=== PATIENT | female | born 2000 ===

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

== ENCOUNTER 2022-01-18 16:24 | Emergency (ER) | payer OTHER, SELFPAY ==
[2022-01-18 17:53] VITALS: BP 109/56; PULSE 68; RESP 16; TEMP 36.7; O2SAT 99; BMI 17.5
--- NOTE | 2022-01-18 18:35 | ED_ITS ---
HPI - Skin/Abscess/Foreign Bdy General Chief complaint: Skin/Abscess/Foreign Body Stated complaint: insect bite Time Seen by Provider: 01/18/22 18:35 History of Present Illness HPI narrative: Patient complains of tender red area on the back of the left thigh, she thinks it might be an insect bite but does not recall any insect bite, she has no fever no chills no joint pains no other rash Related Data Previous Rx's Medication Instructions Recorded ibuprofen 600 mg tablet 600 mg PO Q6H PRN #20 tab 08/31/20 naproxen 500 mg tablet 500 mg PO BID PRN #20 tab 11/26/20 Allergies Allergy/AdvReac Type Severity Reaction Status Date / Time No Known Allergies Allergy Unverified 01/18/22 17:53 Review of Systems Review of Systems: Positive for left thigh area of redness and pain Negatives no fever no chills or dizziness weakness no fainting no feeling faint no neck pain no shortness of breath no nausea no vomiting no joint pains no other rash Yes all other systems are reviewed and are negative [facility] Past Medical History Source: nursing notes reviewed Medical History Anemia Social History Social History Alcohol intake: never Advance Directives: No Advance Directives Information Provided: No Physical Exam Vital Signs: Vital Signs: Last Vital Signs Temp 98.0 F 01/18/22 17:53 Pulse 68 01/18/22 17:53 Resp 16 01/18/22 17:53 BP 109/56 L 01/18/22 17:53 Pulse Ox 99 01/18/22 17:53 BMI result Body Mass Index 17.5 General appearance no acute distress The eyes no redness or discharge The sinuses not congested Neck is supple Respiratory no distress Extremities full range of motion x4 Skin exam of the back of the left thigh there is a 2 cm x 2 cm area of redness and tenderness which is mildly indurated at the center there is no fluctuance there is no discharge, no abscess now Course Course Course Narrative: Red indurated area on the back of the left thigh may be an early cellulitis, could be an early abscess that is not yet formed, could be simply a bug bite so it is treated with antibiotic as it is painful and red may be infected and patient will return if it gets more swollen or redness spreads Discharge Plan Discharge Clinical Impression: Cellulitis Patient Disposition: Home, Self-Care Additional Instructions: The painful red area on the back of the left leg could be simply an insect bite or it could be an infection We are treating for possible infection with doxycycline, you should take it with food as in some people it can make them nauseous on an empty stomach Follow with your doctor for wound check in 3 or 4 days if not better Return here any time for spreading redness, worse pain and swelling, red stripe going up the leg, discharge from wound, any sign of worsening infection any worse condition or any concerns Apply a warm cloth periodically as it may help any drainage Prescriptions: No Action ibuprofen 600 mg tablet 600 mg PO Q6H PRN (Reason: pain) Qty: 20 0RF naproxen 500 mg tablet 500 mg PO BID PRN (Reason: pain) Qty: 20 0RF
== END 2022-01-18 18:52 | disposition home or self-care (01) ==
PROVIDERS: Emergency Provider Internal Medicine
DX: L03.116 Cellulitis of left lower limb (principal); M79.652 Pain in left thigh
CPT/HCPCS: 99283

== ENCOUNTER 2022-04-27 13:09 | Outpatient (REF) | payer OTHER, SELFPAY ==
[2022-04-27 13:49] LABS: COVID-19 Test Negative (Negative); IDNOW Serial# 08D9AD1C
== END 2022-04-27 13:10 | disposition home or self-care (01) ==
LOC: HO.LAB 13:09
PROVIDERS: Visit Provider Internal Medicine
DX: Z20.822 Contact with and (suspected) exposure to COVID-19 (principal)
CPT/HCPCS: 87635; C9803

== ENCOUNTER 2023-04-14 20:05 | Emergency (ER) | payer MEDICAID, SELFPAY ==
[2023-04-14 20:12] VITALS: BP 116/72; PULSE 62; RESP 18; TEMP 36.1; O2SAT 96; BMI 18.0
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
== END 2023-04-15 00:13 | disposition home or self-care (01) ==
PROVIDERS: Emergency Provider Student in an Organized Health Care Education/Training Program
DX: S60.221A Contusion of right hand, initial encounter (principal); W22.09XA Striking against other stationary object, initial encounter; Y93.9 Activity, unspecified; Y92.9 Unspecified place or not applicable; Y99.9 Unspecified external cause status
CPT/HCPCS: 29125; 73130; 99282; 99284

== ENCOUNTER 2023-05-13 16:56 | Emergency (ER) | payer MEDICAID, SELFPAY ==
--- NOTE | 2023-05-13 17:00 | ED.GENADULT ---
HPI - General Adult General Chief complaint: Dental/Oral Stated complaint: Right side face pain Time Seen by Provider: 05/13/23 17:17 Source: patient, family and RN notes reviewed Mode of arrival: ambulatory Limitations: no limitations History of Present Illness HPI narrative: This is a 22-year-old female presenting to the emergency department with complaints of right upper gum pain x 2 days. Patient reports that over the last today she has had worsening right upper dental pain. Denies history of dental abscesses or dental decay. She states that she had her for wisdom teeth removed multiple years ago. Denies any fevers or chills. No chest pain or shortness of breath. No nausea vomiting or diarrhea. No other complaints or concerns at this time. MD complaint: Dental pain Onset (ago): day(s) Radiation: non-radiation Quality: aching Pain Consistency: constant Relieving factors: none Exacerbating factors: none Associated symptoms: denies other symptoms Treatments prior to arrival: none Related Data Previous Rx's Medication Instructions Recorded ibuprofen 600 mg tablet 600 mg PO Q6H PRN pain #20 tabs 08/31/20 naproxen 500 mg tablet 500 mg PO BID PRN pain #20 tabs 11/26/20 doxycycline hyclate 100 mg capsule 100 mg PO BID 7 days #14 caps 01/18/22 ibuprofen 400 mg tablet 400 mg PO Q6H PRN pain #20 tabs 01/18/22 acetaminophen 325 mg capsule 650 mg PO Q6H PRN pain #30 caps 05/13/23 (Tylenol) amoxicillin 875 mg-potassium 1 tab PO BID 7 days #14 tabs 05/13/23 clavulanate 125 mg tablet ibuprofen 600 mg tablet 600 mg PO Q6H PRN pain #30 tabs 05/13/23 Allergies Allergy/AdvReac Type Severity Reaction Status Date / Time shellfish derived Allergy Severe Angioedema Verified 05/13/23 17:07 Review of Systems Review of Systems: Yes all other systems are reviewed and are negative PMFSH Past Medical History Medical History Anemia Social History Social History Alcohol intake: never Advance Directives: No Advance Directives Information Provided: No Physical Exam ED Vital Signs: Vital Signs - 24 hr 05/13/23 17:03 Temperature 97.5 F Pulse Rate 71 Respiratory Rate 16 Blood Pressure 104/60 Pulse Oximetry 97 Oxygen Delivery Method Room Air BMI result Body Mass Index 18.7 Const Other: General: Awake, alert, and oriented X3. No acute distress. HEENT: Normal inspection, see dental exam. Airway patent no tonsillar hypertrophy or exudates. CVS: Normal heart rate and rhythm. Pulses normal. Respiratory: No respiratory distress Skin: Warm, dry, no rashes noted to exposed skin. Normal skin color. Normal skin turgor. Extremities: Normal extremities Neuro: Oriented X 3. No motor deficit. No sensory deficit. HENMT Other: able to open and close jaw. No maxillary and mandibular bony tenderness to palpation. No cervical lymphadenopathy noted. Teeth and gingiva: dentition normal Teeth image: 1. 2 cm fluctuant area of edema and erythema and exquisite tenderness palpation noted to the upper right inner gingiva. Tooth #1 with ?mild decay noted - nontender to palpation Course Course Course Narrative: This is a rapid medical exam: Additional HPI, ROS, PE not included below will be deferred to primary provider. Patient is a 22-year-old female with history of gingivitis presenting to the emergency department with complaint of right upper jaw pain for two days. States is unable to fully open jaw. Denies any injury or trauma. Denies any known broken teeth or dental carries. Denies drainage from affected area. States pain is radiating down right side of neck. Denies fevers. States has had difficulty eating due to being unable to fully open jaw. Denies right ear pain. Patient noted to have right upper jaw swelling. Believes last time she saw dentist was age 19. Medications Administered Discontinued Medications Generic Name Dose Route Start Last Admin Trade Name Freq PRN Reason Stop Dose Admin Amoxicillin/Clavulanate Potassium 875 mg 05/13/23 19:17 05/13/23 19:21 Amoxicillin/Potassium Clav 875 Mg Tablet PO 05/13/23 19:18 875 mg ONCE ONE Administration Procedures Abscess I/D Site: oral Side (if applicable): right Sedation/analgesia: none Local Anesthetic: other anesthetic (lolicane) Technique: needle aspiration Amount of fluid expressed (mL): 2 Sent for culture/gram staining?: No Irrigation: Yes Packing used?: none Medical Decision Making Medical Decision Making MDM Narrative: 22-year-old female presenting to the emergency department for evaluation of right upper gingival abscess on arrival, vital signs within normal limits. Patient is afebrile. On examination, patient has right upper inner gingival abscess that needs to be incised and drained. Incision and drainge performed with some purulence expressed. Pt tolerated procedure well. D/C on oral antibiotics. Urged the importance of f/u with dentist. Pt given strict return precautions. Pt understands and agrees with plan. Pt stable for d/c Differential Diagnosis Differential Diagnoses: The differential diagnosis associated with the presentation includes Gingival abscess, dental decay, dental abscess, dental fracture Discharge Plan Discharge Clinical Impression: Gingival abscess Patient Disposition: Home, Self-Care Instructions: Dental Abscess (ED) Additional Instructions: You have a dental abscess which we drained today. Please take prescribed medication as directed. Complete the full course even if your feeling better Please follow-up with a dentist, we gave you list of dentists in the area. Please call on Monday. If any new or worsening symptoms occur including but not limited to worsening pain, swelling, fevers or chills, please return for re-evaluation. You may take Tylenol or ibuprofen as needed for pain. Prescriptions: New amoxicillin-pot clavulanate 875-125 mg tablet 1 tab PO BID 7 Days Qty: 14 0RF ibuprofen 600 mg tablet 600 mg PO Q6H PRN (Reason: pain) Qty: 30 0RF acetaminophen [Tylenol] 325 mg capsule 650 mg PO Q6H PRN (Reason: pain) Qty: 30 0RF No Action ibuprofen 600 mg tablet 600 mg PO Q6H PRN (Reason: pain) Qty: 20 0RF naproxen 500 mg tablet 500 mg PO BID PRN (Reason: pain) Qty: 20 0RF doxycycline hyclate 100 mg capsule 100 mg PO BID 7 Days Qty: 14 0RF ibuprofen 400 mg tablet 400 mg PO Q6H PRN (Reason: pain) Qty: 20 0RF Stand Alone Forms: Work/School Release Interventions: ED Discharge Assessment Last Done: 05/13/23 19:36 Discharge Date/Time: 05/13/23 19:40
[2023-05-13 17:03] VITALS: BP 104/60; PULSE 71; RESP 16; TEMP 36.4; O2SAT 97; BMI 18.7
[2023-05-13] MEDS: Amoxicillin/Potassium Clav 875 MG TABLET PO (19:21)
== END 2023-05-13 19:40 | disposition home or self-care (01) ==
PROVIDERS: Emergency Provider Emergency Medicine Emergency Medical Services
DX: K05.20 Aggressive periodontitis, unspecified (principal); K08.89 Other specified disorders of teeth and supporting structures
CPT/HCPCS: 41800; 99282; 99284

== ENCOUNTER 2024-02-18 18:25 | Emergency (ER) | payer MEDICAID, SELFPAY ==
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
[2024-02-18 18:40] VITALS: BP 121/70; PULSE 66; RESP 16; BMI 18.9
[2024-02-18 18:45] VITALS: BP 138/90; PULSE 90; O2SAT 99
[2024-02-18 21:30] VITALS: BP 121/70; PULSE 66; RESP 16; TEMP 36.9
== END 2024-02-18 21:31 | disposition home or self-care (01) ==
PROVIDERS: Emergency Provider Emergency Medicine Emergency Medical Services
DX: S16.1XXA Strain of muscle, fascia and tendon at neck level, initial encounter (principal); S40.011A Contusion of right shoulder, initial encounter; V89.2XXA Person injured in unspecified motor-vehicle accident, traffic, initial encounter; Y93.9 Activity, unspecified; Y92.410 Unspecified street and highway as the place of occurrence of the external cause; Y99.9 Unspecified external cause status
CPT/HCPCS: 70450; 72125; 73030; 99282; 99284

== ENCOUNTER 2024-08-28 07:13 | Emergency (ER) | payer BC, SELFPAY ==
[2024-08-28 07:24] VITALS: BP 111/63; PULSE 64; RESP 16; TEMP 36.6; O2SAT 99; BMI 19.2
[2024-08-28 07:52] LABS: IDNOW Serial# 08D9AD1C; Strep A Nucleic Acid Negative (Negative)
[2024-08-28 08:17] LABS: Influenza A PCR NEGATIVE (Negative); Influenza B PCR NEGATIVE (Negative); Resp Syncy Virus RNA Qual PCR NEGATIVE (Negative); SARS COV2 PCR INHOUSE NEGATIVE (Negative)
--- NOTE | 2024-08-28 09:49 | ED_ITS ---
HPI - General Adult General Chief complaint: Upper Respiratory Symptoms Stated complaint: Sore throat Time Seen by Provider: 08/28/24 09:31 Source: patient and RN notes reviewed Mode of arrival: ambulatory Limitations: no limitations History of Present Illness ED Provider: Peggy Escobedo PA-C HPI narrative: This is a 24-year-old female who presents emergency department with complaints of sore throat x2 days. She also endorses a slight dry cough and runny nose. Patient states that her sister had strep throat several weeks ago. Patient reports that she is still able to eat and drink however states that swallowing causes her to have a worsening sore throat. Denies taking any medications to treat her symptoms. She denies any fevers, chills, chest pain, shortness of breath, abdominal pain, vomiting or diarrhea. No other complaints or concerns at this time. MD complaint: Sore throat Onset (ago): day(s) Radiation: non-radiation Relieving factors: none Exacerbating factors: none Associated symptoms: cough Treatments prior to arrival: none Related Data Previous Rx's ?Medication ?Instructions ?Recorded ibuprofen 600 mg tablet 600 mg PO Q6H PRN pain #20 tabs 08/31/20 naproxen 500 mg tablet 500 mg PO BID PRN pain #20 tabs 11/26/20 doxycycline hyclate 100 mg capsule 100 mg PO BID 7 days #14 caps 01/18/22 ibuprofen 400 mg tablet 400 mg PO Q6H PRN pain #20 tabs 01/18/22 acetaminophen 325 mg capsule 650 mg (2 x 325 mg) PO Q6H PRN 05/13/23 (Tylenol) pain #30 caps amoxicillin 875 mg-potassium 1 tab PO BID 7 days #14 tabs 05/13/23 clavulanate 125 mg tablet ibuprofen 600 mg tablet 600 mg PO Q6H PRN pain #30 tabs 05/13/23 Allergies Allergy/AdvReac Type Severity Reaction Status Date / Time shellfish derived Allergy Severe Angioedema Verified 08/28/24 07:25 Review of Systems Review of Systems: Yes all other systems are reviewed and are negative Constitutional: Constitutional: Reports as per HPI [facility] Past Medical History Medical History Anemia Social History Social History Alcohol intake: never Advance Directives: No Advance Directives Information Provided: Yes Physical Exam ED Vital Signs: Vital Signs - 24 hr 08/28/24 07:24 Temperature 97.8 F Pulse Rate 64 Respiratory Rate 16 Blood Pressure 111/63 Pulse Oximetry 99 Oxygen Delivery Method Room Air BMI result Body Mass Index 19.2 Const General: cooperative, comfortable and no acute distress Orientation/consciousness: patient oriented x3 Limitations: no limitations HENMT Other: Oropharynx is widely patent, posterior oropharynx is mildly erythematous, no tonsillar hypertrophy or exudates. Uvula is midline. No trismus, drooling or dysphonia. Head: Yes normal to inspection, Yes normocephalic and Yes atraumatic Ears: hearing grossly normal bilaterally General nose exam: Normal external nose present Face and sinus: Yes normal facial exam Mouth: moist mucous membranes Throat: Yes posterior oropharynx normal Eyes General: appearance normal, both eyes and all related structures Eyelids: Yes eyelids normal Conjunctivae: conjunctivae normal Sclerae: sclerae normal Pupils: Equal, round and reactive pupils present EOM: EOMs intact bilaterally Neck Neck: Yes normal visual inspection, Yes full ROM and Yes no lymphadenopathy Lymphatic: no lymphadenopathy noted Chest Chest palpation & inspection: normal inspection of the chest Resp Effort & Inspection: normal respiratory effort and able to speak in complete sentences Auscultation: clear to auscultation bilaterally, no crackles, no rales, no rhonchi and no wheezes Cardio Rate: regular rate Rhythm: regular rhythm Heart sounds: S1 normal heart sound present and S2 normal heart sound present GI Inspection: Yes normal to inspection Skin General skin exam: no rashes or lesions noted Trauma: no lacerations or abrasions Wounds: no wounds Neuro General: patient oriented x3 and moves all extremities Cranial nerves: Yes Equal, round and reactive pupils present Extrem General: Yes normal to inspection Right upper extremity: normal to inspection Left upper extremity: normal to inspection Right lower extremity: normal to inspection Left lower extremity: normal to inspection Medical Decision Making Medical Decision Making MDM Narrative: This is a 24-year-old female who presents emergency department with complaints of sore throat and dry cough the last 2 days. On arrival, vital signs within normal limits. She is speaking full sentences under no acute distress. Lungs are clear to auscultation bilaterally. Oropharynx is mildly erythematous, no tonsillar hypertrophy or exudates. No trismus, drooling, or dysphonia. Viral swabs were obtained, are negative, strep swab is negative. Symptoms are likely viral in etiology. Discussed this with patient. Discharge with conservative measures, and given strict return precautions. She understands and agrees with plan. Patient stable for discharge. Differential Diagnosis Differential Diagnoses: The differential diagnosis associated with the presentation includes Viral URI, tonsillitis, strep pharyngitis, [employer] Lab Data MDM Lab Attestation statement: I reviewed the patient's lab results. Negative Labs: Lab Results 08/28/24 Range/Units 07:32 Influenza Type A (PCR) NEGATIVE (Negative) Influenza Type B (PCR) NEGATIVE (Negative) RSV RNA Qual (PCR) NEGATIVE (Negative) SARS-CoV-2 RNA (RT-PCR) NEGATIVE (Negative) S. pyogenes GrpA PB Negative (Negative) Discharge Plan Discharge Clinical Impression: Pharyngitis Qualifiers: Pharyngitis/tonsillitis etiology: unspecified etiology Qualified Code(s): J02.9 - Acute pharyngitis, unspecified Patient Disposition: Home, Self-Care Instructions: Pharyngitis (ED) Additional Instructions: You were seen in the emergency department due to a sore throat. You tested negative for COVID, flu, and RSV. You also tested negative for strep throat. You may have a virus that is causing you to have the symptoms. Please drink plenty of fluids get plenty of rest. Alternate between ibuprofen and or Tylenol as needed for pain and symptoms. Saltwater gargles, hot tea with honey, popsicles can also help with your symptoms. If any new or worsening symptoms occur including but not limited to inability to swallow, difficulty breathing, please seek emergent care. Prescriptions: No Action ibuprofen 600 mg tablet 600 mg PO Q6H PRN (Reason: pain) Qty: 20 0RF naproxen 500 mg tablet 500 mg PO BID PRN (Reason: pain) Qty: 20 0RF doxycycline hyclate 100 mg capsule 100 mg PO BID 7 Days Qty: 14 0RF ibuprofen 400 mg tablet 400 mg PO Q6H PRN (Reason: pain) Qty: 20 0RF amoxicillin-pot clavulanate 875-125 mg tablet 1 tab PO BID 7 Days Qty: 14 0RF ibuprofen 600 mg tablet 600 mg PO Q6H PRN (Reason: pain) Qty: 30 0RF acetaminophen [Tylenol] 325 mg capsule 650 mg PO Q6H PRN (Reason: pain) Qty: 30 0RF Stand Alone Forms: Work/School Release Print Language: Macedonian
[2024-08-28 10:05] VITALS: BP 111/63; PULSE 64; RESP 16; TEMP 36.6; O2SAT 99
== END 2024-08-28 10:06 | disposition home or self-care (01) ==
PROVIDERS: Emergency Provider Student in an Organized Health Care Education/Training Program
DX: J02.9 Acute pharyngitis, unspecified (principal); R05.9 Cough, unspecified; R09.89 Other specified symptoms and signs involving the circulatory and respiratory systems; Z03.818 Encounter for observation for suspected exposure to other biological agents ruled out; Z79.899 Other long term (current) drug therapy
CPT/HCPCS: 0241U; 87651; 99282; 99283

== ENCOUNTER 2024-09-18 17:56 | Emergency (ER) | payer BC, MEDICAID, SELFPAY ==
--- NOTE | ~2024-09-18 | XR_ITS ---
EXAMINATION: XR ABDOMEN KUB CLINICAL INDICATION: pain COMPARISON: None available. TECHNIQUE: AP view of the abdomen. FINDINGS: The bowel gas pattern is normal with no evidence of ileus or obstruction. There is retained ascending, transverse and descending colonic stool. No unusual soft tissue calcifications are noted. The bones are unremarkable. XR/XR KUB IMPRESSION: 1. Nonobstructive bowel gas pattern. 2. Retained colonic stool. Electronically signed by: Olaf Singh MD 09/19/2024 12:03 AM [facility]
[2024-09-18 18:15] VITALS: BP 106/71; PULSE 79; RESP 18; TEMP 36.8; O2SAT 99; BMI 18.5
--- NOTE | 2024-09-18 18:44 | ED_ITS ---
HPI - Abdominal Pain General Chief Complaint: Abdominal Pain Stated Complaint: Referred by Urgent care for Abdominal Pain Time Seen by Provider: 09/18/24 22:50 Source: patient, RN notes reviewed and old records reviewed Mode of arrival: ambulatory Limitations: no limitations History of Present Illness ED Provider: Darlyn MARAVILLA narrative: This is a 24-year-old female presents to the ED today after being seen at urgent care earlier today where she was seen for left lower quadrant abdominal pain, and was sent to the emergency department. Patient reports that today she had acute onset of left lower quadrant pain that she describes as throbbing, and that she could not walk. She reports the pain is little better now, however not totally gone. She reports that she is usually constipated, however reports that she can not recall when her last bowel movement was. She is able to pass flatus. Admits to nausea denies vomiting. No surgical history, no reported family abdominal history. She reports that she frequently gets UTIs, but estimates that she is on antibiotics about a once every other month. She currently is having urinary symptoms including increased volume, frequency and she reports an odor. This is not unusual for her, and she believes she thought he had a UTI which she went to urgent care today for. Related Data Previous Rx's ?Medication ?Instructions ?Recorded ibuprofen 600 mg tablet 600 mg PO Q6H PRN pain #20 tabs 08/31/20 naproxen 500 mg tablet 500 mg PO BID PRN pain #20 tabs 11/26/20 doxycycline hyclate 100 mg capsule 100 mg PO BID 7 days #14 caps 01/18/22 ibuprofen 400 mg tablet 400 mg PO Q6H PRN pain #20 tabs 01/18/22 acetaminophen 325 mg capsule 650 mg (2 x 325 mg) PO Q6H PRN 05/13/23 (Tylenol) pain #30 caps amoxicillin 875 mg-potassium 1 tab PO BID 7 days #14 tabs 05/13/23 clavulanate 125 mg tablet ibuprofen 600 mg tablet 600 mg PO Q6H PRN pain #30 tabs 05/13/23 magnesium citrate 300 ml PO DAILY PRN constipation 09/18/24 #296 mL polyethylene glycol 3350 17 17 g PO DAILY PRN constipation 09/18/24 gram/dose oral powder (ClearLax) #238 grams Allergies Allergy/AdvReac Type Severity Reaction Status Date / Time shellfish derived Allergy Severe Angioedema Verified 09/18/24 18:20 Review of Systems Constitutional: Denies body ache(s), Denies chills and Denies fever(s) Denies vertigo and Denies dizziness Cardiovascular: Denies chest pain and Denies dyspnea Respiratory: Denies cough and Denies dyspnea Gastrointestinal: Reports abdominal pain, Reports constipation, Denies nausea and Denies vomiting Musculoskeletal: Denies back pain Denies vertigo and Denies dizziness [facility] Past Medical History Medical History Anemia Social History Social History Alcohol intake: never Advance Directives: No Advance Directives Information Provided: No Do you have a plan to hurt others: No Plan Physical Exam ED Vital Signs: Vital Signs - 24 hr 09/18/24 18:15 09/18/24 21:52 09/18/24 23:35 Temperature 98.3 F 97.9 F 98.6 F Pulse Rate 79 73 73 Respiratory Rate 18 16 16 Blood Pressure 106/71 122/76 106/69 Pulse Oximetry 99 100 97 Oxygen Delivery Method Room Air Room Air Room Air BMI result Body Mass Index 18.5 Const General: cooperative, no acute distress and well groomed Nutritional Appearance: thin Orientation/consciousness: patient oriented x3 HENMT Head: Yes normocephalic and Yes atraumatic Eyes Eyelids: Yes eyelids normal Conjunctivae: conjunctivae normal Sclerae: sclerae normal Corneas: corneas normal Pupils: Equal, round and reactive pupils present EOM: EOMs intact bilaterally Neck Neck: Yes full ROM Resp Effort & Inspection: normal respiratory effort, able to speak in complete sentences and no cough Auscultation: clear to auscultation bilaterally Cardio Rate: regular rate Rhythm: regular rhythm GI Other: Soft, nondistended abdomen. Tenderness to palpation predominantly in the left lower quadrant, with some tenderness to palpation of the left upper quadrant. Good bowel sounds all 4 quadrants. No overlying skin changes. Inspection: No distended and No scar Palpation (GI): Soft to palpation, not firm, Tenderness to palpation present (GI) in the LLQ, no guarding and not rigid Skin General skin exam: elasticity normal Neuro General: patient oriented x3 Cranial nerves: Yes Equal, round and reactive pupils present and Yes Bilaterally intact EOM present Cognition (Neuro): normal cognition Extrem Other: Moving all extremities well without any obvious deformities Course Course Course Narrative: This is an RME done by NAYELI Morrison: Additional HPI, ROS, PE not included below will be deferred to primary provider. 24-year-old female presents with left lower abdominal pain, nausea, and constipation. Reports last bowel movement was last night. She reports she is very uncomfortable. She is sitting in the triage your holding her left side. No history of pancreatitis. Appearance: Alert.? Oriented X3.? No acute cardiopulmonary distress distress.? Head: Normocephalic, atraumatic, no step-offs or deformities CVS: Pulses normal.? Respiratory: No respiratory distress.? Abdomen: Soft and Tenderness to left side of abdomen particularly left lower quadrant.? Skin: ? Normal skin color. Extremities: 5/5 strength to bilateral upper and lower extremities Neuro: Oriented X 3.? No motor deficit.? No sensory deficit. Medical Decision Making Medical Decision Making MDM Narrative: This is a healthy 24-year-old female presenting for evaluation abdominal pain. Her history exam is most consistent with constipation. Her labs and urinalysis did not show any concerning abnormalities. She is still passing flatus, I have a low suspicion for obstruction. Her symptoms are more chronic, she has no fever, no white count to suggest infectious process. A KUB was ordered to evaluate for constipation. etiology seems less likely based on her signs and symptoms. The patient has no suspicion for sexually transmitted infections Differential Diagnosis Differential Diagnoses: The differential diagnosis associated with the presentation includes Constipation Diverticulosis Bowel obstruction Ovarian cyst Lab Data MDM Lab Attestation statement: I reviewed the patient's lab results. No leukocytosis or anemia. Normal platelet count. No significant electrolyte abnormalities. Urinalysis is clear 09/18/24 18:56 09/18/24 18:56 Labs: Lab Results 09/18/24 Range/Units 18:56 WBC 6.8 (4.8-10.8) X10*3/uL RBC 4.37 (4.20-5.50) X10*6/uL Hgb 13.6 (12.0-16.0) g/dl Hct 39.5 (37.0-47.0) % MCV 90.4 (80.0-98.0) fL MCH 31.1 (27.0-33.0) pg MCHC 34.4 (31.0-35.0) g/dl RDW 12.0 (11.0-16.0) % Plt Count 215 (160-400) X10*3/uL MPV 10.2 (9.4-12.3) fL Immature Gran % (Auto) 0.1 (0.0-0.4) % Neut % (Auto) 58.3 (45-73) % Lymph % (Auto) 28.8 (20-40) % [place] % (Auto) 8.1 (2-11) % Eos % (Auto) 4.1 H (0-4) % Baso % (Auto) 0.6 (0-2) % Lymph # (Auto) 2.0 (1.2-4.9) X10*3/uL [place] # (Auto) 0.6 (0.1-1.2) X10*3/uL Eos # (Auto) 0.3 (0.0-0.4) X10*3/uL Baso # (Auto) 0.0 (0.0-0.2) X10*3/uL Abs Immat Gran (auto) 0.01 (0.00-0.03) X10*3/uL Absolute Neuts (auto) 4.0 (2.0-8.3) x10*3/uL Absolute Nucleated RBC 0.000 (0.0-0.012) X10*3/uL Nucleated RBC % (auto) 0.0 (0.0-0.2) /100WBC Sodium 138 (135-145) mmol/L Potassium 4.0 (3.3-5.1) mmol/L Chloride 110 H (96-108) mmol/L Carbon Dioxide 23 (22-29) mmol/L Anion Gap 9 L (12-20) BUN 12 (9-16) mg/dL Creatinine 0.69 (0.5-1.4) mg/dL Estim Creat Clear Calc 98.7 Estimated GFR > 60 Random Glucose 86 (60-115) mg/dL Calcium 9.2 (8.4-10.2) mg/dL Magnesium 1.9 (1.6-2.6) mg/dL Total Bilirubin 0.3 (0.0-1.0) mg/dL AST 21 (5-31) U/L ALT 15 (0-31) U/L Alkaline Phosphatase 41 (39-117) U/L Total Protein 7.5 (6.5-8.0) g/dL Albumin 4.3 (3.5-5.0) g/dL Lipase 21 (8-78) U/L Beta HCG, Quant < 2 mIU/mL Urine Color Yellow Urine Appearance Clear Urine pH 6.0 (5.0-9.0) Ur Specific [place] 1.025 (1.005-1.025) Urine Protein Negative (Neg-Trace) mg/dL Urine Glucose (UA) Negative (Negative) mg/dL Urine Ketones Trace (Negative) mg/dL Urine Blood Negative (Negative) Urine Nitrite Negative (Negative) Ur Leukocyte Esterase Negative (Negative) Independent Interpretation I performed an independent interpretation of an: Plain X-Ray (Moderate stool burden) Discharge Plan Discharge Clinical Impression: Constipation Patient Disposition: Home, Self-Care Instructions: Constipation (ED), High Fiber Diet (ED) Additional Instructions: Your blood work and urinalysis did not show any concerning abnormalities. Your x-ray shows that you are very constipated I recommend that you increase fluid and fiber intake in your diet I recommend that you take MiraLax every night for the next 2 weeks. You should take magnesium citrate drink at least half the bottle tomorrow Follow-up with your primary doctor, return for new or worsening symptoms Prescriptions: New polyethylene glycol 3350 [ClearLax] 17 gram/dose powder 17 g PO DAILY PRN (Reason: constipation) Qty: 238 0RF magnesium citrate Solution 300 ml PO DAILY PRN (Reason: constipation) Qty: 296 0RF No Action ibuprofen 600 mg tablet 600 mg PO Q6H PRN (Reason: pain) Qty: 20 0RF naproxen 500 mg tablet 500 mg PO BID PRN (Reason: pain) Qty: 20 0RF doxycycline hyclate 100 mg capsule 100 mg PO BID 7 Days Qty: 14 0RF ibuprofen 400 mg tablet 400 mg PO Q6H PRN (Reason: pain) Qty: 20 0RF amoxicillin-pot clavulanate 875-125 mg tablet 1 tab PO BID 7 Days Qty: 14 0RF ibuprofen 600 mg tablet 600 mg PO Q6H PRN (Reason: pain) Qty: 30 0RF acetaminophen [Tylenol] 325 mg capsule 650 mg PO Q6H PRN (Reason: pain) Qty: 30 0RF Print Language: Slovak
[2024-09-18 19:01] LABS: MANUAL DIFF FLAG NO
[2024-09-18 19:04] LABS: Appearance Urine Clear; Basophils Percent Auto 0.6 % (0-2); Color Urine Yellow; Eosinophils Absolute Auto 0.3 X10*3/uL (0.0-0.4); Eosinophils Percent Auto 4.1 % (0-4); Glucose Urine UA Negative (Negative); Hematocrit 39.5 % (37.0-47.0); Hemoglobin 13.6 g/dl (12.0-16.0); Imm Gran Abs Auto 0.01 X10*3/uL (0.00-0.03); Imm Gran Pct Auto 0.1 % (0.0-0.4); Leukocyte Esterase Urine Negative (Negative); Lymphocytes Percent Auto 28.8 % (20-40); Mean Corpuscular HGB Conc 34.4 g/dl (31.0-35.0); Mean Corpuscular Hemoglobin 31.1 pg (27.0-33.0); Mean Corpuscular Volume 90.4 fL (80.0-98.0); Mean Platelet Volume 10.2 fL (9.4-12.3); Monocytes Absolute Auto 0.6 X10*3/uL (0.1-1.2); Monocytes Percent Auto 8.1 % (2-11); Neutrophils Percent Auto 58.3 % (45-73); Nitrite Urine Negative (Negative); Platelet Count 215 X10*3/uL (160-400); Red Blood Count 4.37 X10*6/uL (4.20-5.50); Specific Gravity - Urine 1.025 (1.005-1.025); Urine Blood Negative (Negative); Urine Ketones Trace mg/dL (Negative); Urine Protein Negative (Neg-Trace); White Blood Count 6.8 X10*3/uL (4.8-10.8)
[2024-09-18 19:28] LABS: Alanine Aminotransferase 15 U/L (0-31); Albumin Level 4.3 g/dL (3.5-5.0); Alkaline Phosphatase 41 U/L (39-117); Anion Gap 9 (12-20); Aspartate Amino Transferase 21 U/L (5-31); Bilirubin Total 0.3 mg/dL (0.0-1.0); Blood Urea Nitrogen 12 mg/dL (9-16); Calcium 9.2 mg/dL (8.4-10.2); Carbon Dioxide 23 mmol/L (22-29); Chloride 110 mmol/L (96-108); Creatinine Clr Calc Pharmacy 98.7; Estimated Glomerular Filt Rate > 60; Glucose Random 86 mg/dL (60-115); Lipase 21 U/L (8-78); Magnesium 1.9 mg/dL (1.6-2.6); Sodium 138 mmol/L (135-145); Total Protein 7.5 g/dL (6.5-8.0)
[2024-09-18 19:30] LABS: HCG Quantitative < 2 mIU/mL
[2024-09-18 21:52] VITALS: BP 122/76; PULSE 73; RESP 16; TEMP 36.6; O2SAT 100
[2024-09-18 23:35] VITALS: BP 106/69; PULSE 73; RESP 16; TEMP 37; O2SAT 97
--- NOTE | 2024-09-18 23:36 | MHC.EDTECH ---
This pct assumed care of Patient at 2300 ,vitals taken ,Patient talking on Phone ,no apparent distress noted ,Plan of care continue .
[2024-09-19 00:13] VITALS: BP 106/69; PULSE 73; RESP 16; TEMP 37; O2SAT 97
== END 2024-09-19 00:14 | disposition home or self-care (01) ==
PROVIDERS: Physician Assistant; Emergency Provider Internal Medicine
DX: K59.00 Constipation, unspecified (principal); R10.32 Left lower quadrant pain; D64.9 Anemia, unspecified; Z79.899 Other long term (current) drug therapy
CPT/HCPCS: 36415; 74018; 80053; 81003; 83690; 83735; 84702; 85025; 99283